=== PATIENT | female | born 1960 | race Caucasian/White ===

== ENCOUNTER 2017-07-12 11:52 | Emergency (ER) | payer OTHER ==
[~2017-07-12] VITALS: Ht 167.6 cm; Wt 104.3 kg
--- OUTSIDE RECORDS SUMMARY | ~2017-07-12 | XMS | Clinical Summary ---
Demographics + + + | Address | [address] | | | [place] [address] | + + + | Home Phone | | + + + | Preferred Language | Unknown | + + + | Marital Status | Unknown | + + + | Adventism Affiliation | Unknown | + + + | Race | Unknown | + + + | Ethnic Group | Unknown | + + + Author + + + | Author | [facility] | | | [facility] [place] | + + + | Organization | [facility] | | | [facility] [place] | + + + | Address | Unknown | + + + | Phone | Unavailable | + + + Care Team Providers + +------+ + | Care Microbiology Lab Technician Name | Role | Phone | + +------+ + PP | Unavailable | + +------+ + Allergies Not on File Current Medications Not on file Active Problems Not on file Social History + +-------+ +--------+------+ | Tobacco Use | Types | Packs/Day | Years | Date | | | | | Used | | + +-------+ +--------+------+ | Never Assessed | | | | | + +-------+ +--------+------+ + + + | Sex Assigned at | Date Recorded | | | | + + + | Not on file | | + + + Plan of Treatment + + + + + | Health Maintenance | Due Date | Last Done | Comments | + + + + + | Hepatitis C | | | | | Screening | 0 | | | + + + + + | Vaccine: | | | | | Dtap/Tdap/Td (1 - | 9 | | | | Tdap) | | | | + + + + + | CERVICAL CANCER | | | | | SCREENING (PAP EVERY | 1 | | | | 3 YEARS 21-64 ) | | | | + + + + + | BREAST CANCER | | | | | SCREENING (MAMM Q2 | 0 | | | | YEARS 50-74) | | | | + + + + + | COLON CANCER | | | | | SCREENING | 0 | | | | (COLONOSCOPY EVERY | | | | | 10 YEARS 50-75) | | | | + + + + + | Vaccine: Influenza | | | | | (Season Ended) | 8 | | | + + + + + Results Not on filefrom Last 3 Months"
--- OUTSIDE RECORDS SUMMARY | ~2017-07-12 | XMS | Clinical Summary ---
Demographics + + + | Address | [address] | | | [place] [address] | + + + | Home Phone | | + + + | Preferred Language | Unknown | + + + | Marital Status | Unknown | + + + | Protestant Affiliation | Unknown | + + + | Race | Unknown | + + + | Ethnic Group | Unknown | + + + Author + + + | Author | [facility] | | | [facility] [place] | + + + | Organization | [facility] | | | [facility] [place] | + + + | Address | Unknown | + + + | Phone | Unavailable | + + + Care Team Providers + +------+ + | Care Java Architect Name | Role | Phone | + [...]
[~2017-07-12 11:52] MED LIST: ALPRAZOLAM0.5 MG PO; ASPIRIN325 MG PO; AZITHROMYCIN250 MG PO; CYMBALTA60 MG PO; GABAPENTIN400 MG PO; LEVOTHYROXINE175 MCG PO; LITHIUM CARBON300 M1 PO; NAPROSYN500 MG PO; TESSALON PERLE100 MG PO; TRAZODONE HCL100 MG PO; WELLBUTRIN SR200 MG PO; XANAX0.5 MG PO
[2017-07-12] MEDS ORDERED: METHYLPREDNISOLO4 M1 PO (12:27)
[2017-07-12] MEDS ORDERED: ZITHROMAX250 MG PO (12:27)
[2017-07-12] MEDS ORDERED: VENTOLIN HFA18 GM INH (12:27)
--- NOTE | 2017-07-13 06:37 | EKG ---
[facility] [address] [place] [address] Signed Normal sinus rhythm Incomplete right bundle branch block Nonspecific ST abnormality Prolonged QT Abnormal ECG No previous ECGs available Confirmed by TJ SCHWARTZ MD ([id number]) on 07/13/2017 6:37:10 AM Electronically Signed By: TJ SCHWARTZ MD 07/13/17 0637 PATIENT NAME: JOY HOOK SAVANNAH Electrocardiogram DATE OF : 60 PHYSICIAN: TJ SCHWARTZ MD REPORT #: [id number] REPORT IS CONFIDENTIAL AND NOT TO BE RELEASED WITHOUT AUTHORIZATION
== END 2017-07-12 12:35 | disposition home or self-care (01) ==
LOC: ED 11:52
DX: J40 Bronchitis, not specified as acute or chronic (principal); Z87.891 Personal history of nicotine dependence; Z88.5 Allergy status to narcotic agent; Z79.82 Long term (current) use of aspirin; Z79.899 Other long term (current) 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
CPT/HCPCS: 93005; 93010; 99283

== ENCOUNTER 2023-10-19 09:50 | Day surgery (SDC) | payer MEDICARE, OTHER ==
[2023-10-17 08:49] VITALS: BP 150/87
[~2023-10-19] VITALS: Ht 167.6 cm; Wt 119.0 kg
[~2023-10-19 09:50] MED LIST changes: +IBLOOD GLUCOSE TEST STRIP 1 EA TEST VI PRN; +LACTATED RINGER'S 1,000 ML IV SCH; +LIDOCAINE HCL 1% 5 ML SDV INJ ONE; +METHYLFOLATE1 EACH PO; +METHYLPREDNISOLO4 M1 PO; +PROPRANOLOL HCL20 MG PO; +ROSUVASTATIN CA10 MG PO; +VENTOLIN HFA18 GM INH; +VITAMIN D250 MC1 PO; +VITAMIN D250 MCG PO; +WOMEN'S DAILY1 EACH PO; +ZITHROMAX250 MG PO; +ZOLPIDEM TARTRA10 MG PO
[2023-10-19 10:05] VITALS: BP 145/81
[2023-10-19] MEDS ORDERED: DEXAMETHASONE SOD PHOS 4 MG/ML VIAL ONE (10:18)
[2023-10-19] MEDS ORDERED: ondansetron HCL 4 MG/2 ML VIAL ONE (10:18)
[2023-10-19] MEDS ORDERED: propofoL 200 MG/20 ML VIAL ONE ×2 (10:18→10:40)
[2023-10-19] MEDS ORDERED: LIDOCAINE HCL 2% 5 ML SDV ONE (10:18)
--- NOTE | 2023-10-19 10:59 | NUR ---
10/19/23 Ro9 Rita Rosales HOB IS ELEVATED. PATIENT ASKS "CAN I GO BACK TO SLEEP?" PATIENT RESTS QUIETLY WITH RR EVEN AND UNLABORED WHEN UNSTIMULATED. SHE WAKES EASILY TO MY VOICE.
[2023-10-19 11:25] VITALS: BP 137/66
--- NOTE | 2023-10-19 13:58 | OR ---
[facility] [address], [place] [address] Signed DATE OF OPERATION: 10/19/2023 SURGEON: Ricardo Neal MD PREOPERATIVE DIAGNOSES: 1. Positive Cologuard test. 2. Generalized abdominal pain, bloating, and diarrhea associated with irritable bowel syndrome. POSTOPERATIVE DIAGNOSIS: Minimal internal hemorrhoids. PROCEDURE: Colonoscopy without biopsy. ESTIMATED BLOOD LOSS: None. INDICATIONS: Joy is a 63-year-old female, asked to see me for her initial colonoscopy. I actually saw her in 2011 for her chronic generalized abdominal pain, bloating and diarrhea associated with her irritable bowel syndrome. She never came for the colonoscopy because of her severe agoraphobia. She did get some stool samples recently and the Cologuard test came back positive. This was in August of 2022. She has been talking with her friends and finally got up enough courage and took medicine in order that she could make it in the office for the consult. She tells me there is no family history of colon cancer or polyps. In the office, I gave her a pamphlet on colonoscopy. We had reviewed the nature of the test. There is risk including, but not limited to gas bloating, crampy abdominal pain, bleeding, perforation requiring surgery, and missed diagnosis. We also reviewed the written instructions for the bowel prep line by line. She did call me last night and asked if she could take her promethazine which is fine. Because of her severe bipolar disorder associated with agoraphobia and her panic attacks, we did ask for monitored anesthesia care with propofol infusion. That proved to be a hassan decision as she needed quite a bit of propofol. She had expressed understanding and wished to proceed. DESCRIPTION OF PROCEDURE: Joy was taken into our endoscopy suite and placed in the left lateral decubitus position. She was given monitored anesthesia care with propofol infusion per our nurse first crusher. A digital rectal exam was performed. This was unremarkable. There were Electronically Signed By: RICARDO NEAL MD 10/19/23 1358 PATIENT NAME: JOY HOOK OPERATIVE REPORT DATE OF : 60 REPORT #: [id number] PHYSICIAN: RICARDO NEAL MD PCP: MATTHEW POST MD REPORT IS CONFIDENTIAL AND NOT TO BE RELEASED WITHOUT AUTHORIZATION [facility] [address], [place] [address] Signed no external hemorrhoids. She had good sphincter tone. There were no masses. The adult colonoscope was introduced and advanced all around into the cecum under direct visualization of the camera without difficulty. Her prep was good. There were few areas of liquid stool that was easily irrigated and suctioned out. We could easily see the appendiceal orifice and the ileocecal valve. The scope was then slowly withdrawn. We took several pictures throughout for photodocumentation. She had no pathology throughout the entire colon or rectum. The scope was then retroflexed and she has just very minimal internal hemorrhoid tissue. After this, the gas was suctioned out and the colonoscope removed. Joy tolerated the procedure quite well. RECOMMENDATIONS: Joy can follow up in 10 years for repeat screening colonoscopy. Ricardo Neal MD ALB/MODL /[id number] cc: MD Ricardo Senior MD Copies: MATTHEW POST DMD, ANDREW L MD ~ Electronically Signed By: RICARDO NEAL MD 10/19/23 1358 PATIENT NAME: JOY HOOK OPERATIVE REPORT DATE OF : 60 REPORT #: [id number] PHYSICIAN: RICARDO NEAL MD PCP: MATTHEW POST MD REPORT IS CONFIDENTIAL AND NOT TO BE RELEASED WITHOUT AUTHORIZATION
== END 2023-10-19 11:34 | disposition home or self-care (01) ==
LOC: DS 09:50
PROVIDERS: ATTEND Colon & Rectal Surgery
PROC: 0DJD8ZZ Inspection of Lower Intestinal Tract, Via Natural or Artificial Opening Endoscopic (ICD-10-PCS; principal; 2023-10-19 10:30)
DX: Z12.11 Encounter for screening for malignant neoplasm of colon (principal); K64.8 Other hemorrhoids; K58.0 Irritable bowel syndrome with diarrhea; F40.00 Agoraphobia, unspecified; F31.9 Bipolar disorder, unspecified; E78.5 Hyperlipidemia, unspecified; E03.9 Hypothyroidism, unspecified; E66.9 Obesity, unspecified; Z68.41 Body mass index [BMI] 40.0-44.9, adult; Z87.891 Personal history of nicotine dependence; Z88.5 Allergy status to narcotic agent; Z79.890 Hormone replacement therapy; Z79.899 Other long term (current) 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
CPT/HCPCS: J1100; J2001; J2405; J2704; J7121

== ENCOUNTER 2023-11-16 23:36 | Emergency (ER) | payer MEDICARE, OTHER ==
[~2023-11-16] VITALS: Ht 167.6 cm; Wt 119.5 kg
[~2023-11-16 23:36] MED LIST changes: -IBLOOD GLUCOSE TEST STRIP 1 EA TEST VI PRN; -LACTATED RINGER'S 1,000 ML IV SCH; -LIDOCAINE HCL 1% 5 ML SDV INJ ONE
--- OUTSIDE RECORDS SUMMARY | 2023-11-16 23:37 | XMS ---
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 Aamir has no Care Guidelines for this patient. Xavier VISIT COUNT (12 MO.) 1 TARAN Potter TOTAL 1 NOTE: Visits indicate total known visits. ED/C VISIT TRACKING (12 MO.) 11/16/2023 23:37 [facility] [place] TYPE: Emergency COMPLAINT: - PROBLEM SWALLOWING INPATIENT VISIT TRACKING (12 MO.) No inpatient visits to display in this time frame [email or web address]
[2023-11-17 00:10] VITALS: BP 159/67
== END 2023-11-17 00:10 | disposition home or self-care (01) ==
LOC: ED 23:36
DX: R09.A2 Foreign body sensation, throat (principal); F31.9 Bipolar disorder, unspecified; Z87.891 Personal history of nicotine dependence; Z88.5 Allergy status to narcotic agent; Z79.899 Other long term (current) 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; Z79.890 Hormone replacement therapy
CPT/HCPCS: 99283

== ENCOUNTER 2024-01-11 18:48 | Emergency (ER) | payer MEDICARE, OTHER ==
[~2024-01-11] VITALS: Ht 167.6 cm; Wt 118.3 kg
[2024-01-11] MEDS ORDERED: ASPIRIN 81 MG CHEW PO ONE (19:00)
[2024-01-11] MEDS ORDERED: NITROGLYCERIN 0.4 MG SUBL SL PRN (19:00)
[2024-01-11] MEDS ORDERED: METAFOLBIC TAB1 EACH PO (19:11)
[2024-01-11 19:27] LABS: BASOPHILS 1.1 % (0-2); EOSINOPHILS 5.6 % (0-6); HEMATOCRIT 41.7 % (35.0-50.0); HEMOGLOBIN 14.1 g/dL (12.0-18.0); LYMPHOCYTES 30.9 % (24-44); MCH 30.7 (27-36); MCHC 33.7 g/dl (30-36); MCV 90.9 fl (81-99); MONOCYTES 8.1 % (0-12); NEUTROPHILS 54.3 % (39-80); PLATELET COUNT 205 K/uL (140-440); RBC 4.59 M/ul (4.3-5.7); RDW 13.5 (10.5-15.0)
[2024-01-11 19:27] LABS: ALBUMIN 4.1 g/dL (3.4-5.0); ALBUMIN/GLOBULIN RATIO 1.37 (1.1-2.4); BILIRUBIN, TOTAL 0.5 ng/dL (0.2-1.0); BUN/CREATININE RATIO 10.48 (6.0-28.6); CALCIUM 9.5 mg/dL (8.5-10.1); CREATININE, SERUM 1.24 mg/dL (0.55-1.02); MAGNESIUM 1.7 mg/dL (1.8-2.4); PROTEIN, TOTAL 7.1 g/dL (6.4-8.2)
[2024-01-11] MEDS ORDERED: ondansetron HCL 4 MG/2 ML VIAL IV ONE (20:00)
[2024-01-11] MEDS ORDERED: PSEUDOEPHEDRINE HCL 30 MG TAB PO ONE (20:00)
[2024-01-11] MEDS ORDERED: KETOROLAC TROMETHAMINE 30 MG/ML VIAL IV ONE (20:00)
[2024-01-11 20:57] VITALS: BP 111/65
[2024-01-11] MEDS ORDERED: MECLIZINE HCL25 M1 PO (21:14)
[2024-01-11] MEDS ORDERED: ONDANSETRON ODT8 MG PO (21:15)
[2024-01-11] MEDS ORDERED: MECLIZINE HCL 25 MG TAB PO ONE (21:30)
[2024-01-11] MEDS ORDERED: ONDANSETRON 4 MG HOME.PACK SL ONE (21:30)
--- NOTE | 2024-01-12 23:12 | EKG ---
[facility] [address] [place] [address] Signed Normal sinus rhythm RSR' or QR pattern in V1 suggests right ventricular conduction delay Borderline ECG No previous ECGs available Confirmed by Tram Bledsoe MD () on 01/12/2024 11:12:13 PM Electronically Signed By: TRAM BLEDSOE MD 01/12/24 2312 PATIENT NAME: JOY HOOK Electrocardiogram DATE OF : 60 PHYSICIAN: TRAM BLEDSOE MD REPORT #: [id number] REPORT IS CONFIDENTIAL AND NOT TO BE RELEASED WITHOUT AUTHORIZATION
== END 2024-01-11 21:28 | disposition home or self-care (01) ==
LOC: ED 18:48
PROVIDERS: Emergency Medicine
DX: R07.89 Other chest pain (principal); H81.10 Benign paroxysmal vertigo, unspecified ear; N18.31 Chronic kidney disease, stage 3a; E78.5 Hyperlipidemia, unspecified; F31.9 Bipolar disorder, unspecified; Z87.891 Personal history of nicotine dependence; Z88.5 Allergy status to narcotic agent
CPT/HCPCS: 36415; 70450; 70496; 70498; 71045; 80053; 83735; 84484; 85025; 93005; 93010; 99285-25; A9270; J1885; J2405; Q9967

== ENCOUNTER 2024-05-08 23:13 | Emergency (ER) | payer MEDICARE, OTHER ==
[~2024-05-08] VITALS: Ht 167.6 cm; Wt 108.9 kg
[~2024-05-08 23:13] MED LIST changes: +MECLIZINE HCL25 M1 PO; +METAFOLBIC TAB1 EACH PO; +ONDANSETRON ODT8 MG PO
[2024-05-08] MEDS ORDERED: CIPROFLOXACIN250 MG (23:35)
[2024-05-08] MEDS ORDERED: OLANZAPINE5 MG (23:35)
[2024-05-08] MEDS ORDERED: LIDOCAINE HCL 4% 50 ML BTL TOP ONE (23:45)
[2024-05-08] MEDS ORDERED: PHENAZOPYRIDINE HCL 100 MG TAB PO ONE (23:45)
[2024-05-09 00:16] VITALS: BP 145/75
== END 2024-05-09 00:15 | disposition home or self-care (01) ==
LOC: ED 23:13
DX: R09.A2 Foreign body sensation, throat (principal); N18.31 Chronic kidney disease, stage 3a; E78.5 Hyperlipidemia, unspecified; Z87.891 Personal history of nicotine dependence; Z88.5 Allergy status to narcotic agent; Z79.890 Hormone replacement therapy; Z79.899 Other long term (current) 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
CPT/HCPCS: 70360; 71045; 99283-25

== ENCOUNTER 2024-05-15 09:10 | Emergency (ER) | payer MEDICARE, OTHER ==
[~2024-05-15] VITALS: Ht 167.6 cm; Wt 117.9 kg
[~2024-05-15 09:10] MED LIST changes: +CIPROFLOXACIN250 MG; +OLANZAPINE5 MG
--- OUTSIDE RECORDS SUMMARY | 2024-05-15 09:16 | XMS ---
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 Aamir has no Care Guidelines for this patient. [facility] MO[facility] NOTE: Visits indicate total known visits. 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 - Personal history of nicotine dependence 01/11/2024 18:49 [facility] [place] TYPE: Emergency COMPLAINT: - CHEST PAIN DIAGNOSES: - Allergy status to narcotic agent - Benign paroxysmal vertigo, unspecified ear - Bipolar disorder, unspecified - Chest pain, unspecified - Chronic kidney disease, stage 3a - Hyperlipidemia, unspecified - Other chest pain - Personal history of nicotine dependence 11/16/2023 23:37 [facility] [place] TYPE: Emergency COMPLAINT: - PROBLEM SWALLOWING DIAGNOSES: - Allergy status to narcotic agent - Bipolar disorder, unspecified - Foreign body sensation, throat - Hormone replacement therapy - 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
[2024-05-15] MEDS ORDERED: LEVOTHYROXINE150 MCG PO (09:24)
[2024-05-15] MEDS ORDERED: ALPRAZOLAM ER0.5 MG PO (09:26)
[2024-05-15] MEDS ORDERED: PROMETHAZINE HC25 M1 PO (09:26)
[2024-05-15 09:29] LABS: EOSINOPHILS 4.7 % (0-6); HEMATOCRIT 45.6 % (35.0-50.0); HEMOGLOBIN 15.3 g/dL (12.0-18.0); LYMPHOCYTES 40.9 % (24-44); MCH 30.3 (27-36); MCHC 33.6 g/dl (30-36); MCV 90.2 fl (81-99); MONOCYTES 9.5 % (0-12); NEUTROPHILS 43.9 % (39-80); PLATELET COUNT 223 K/uL (140-440); RBC 5.05 M/ul (4.3-5.7); RDW 13.5 (10.5-15.0)
[2024-05-15] MEDS ORDERED: ondansetron HCL 4 MG/2 ML VIAL IV ONE (09:30)
[2024-05-15 09:45] LABS: ALBUMIN 4.2 g/dL (3.4-5.0); ALBUMIN/GLOBULIN RATIO 1.27 (1.1-2.4); BILIRUBIN, TOTAL 0.6 ng/dL (0.2-1.0); BUN/CREATININE RATIO 16.09 (6.0-28.6); CALCIUM 9.9 mg/dL (8.5-10.1); CREATININE, SERUM 0.87 mg/dL (0.55-1.02); MAGNESIUM 1.9 mg/dL (1.8-2.4); PROTEIN, TOTAL 7.5 g/dL (6.4-8.2)
[2024-05-15 10:13] LABS: BILIRUBIN, URINE NEGATIVE (negative); BLOOD/HGB, URINE NEGATIVE (Negative); KETONE, URINE NEGATIVE (Negative); LEUK ESTERASE, URINE SMALL (negative); NITRITE, URINE NEGATIVE (negative); PH, URINE 5.5 (5-7)
[2024-05-15 10:24] LABS: EPITHELIAL CELLS, URINE SQUAMOUS 2+ /lpf (0-1+); RED BLOOD CELLS, URINE 0-1 /hpf (0-5)
[2024-05-15 10:25] LABS: BACTERIA, URINE RARE /hpf (negative); CASTS, URINE NONE SEEN \\lpf; COLLECTION TYPE, URINE CLEAN CATCH; CRYSTALS, URINE NONE SEEN (0-1+); REFLEX CULTURE, URINE No (No)
[2024-05-15 11:00] VITALS: BP 158/85
== END 2024-05-15 11:00 | disposition home or self-care (01) ==
LOC: ED 09:10
PROVIDERS: Emergency Medicine
DX: R10.31 Right lower quadrant pain (principal); N18.31 Chronic kidney disease, stage 3a; E78.5 Hyperlipidemia, unspecified; F31.9 Bipolar disorder, unspecified; Z87.891 Personal history of nicotine dependence; Z88.5 Allergy status to narcotic agent; Z79.899 Other long term (current) 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; Z79.890 Hormone replacement therapy
CPT/HCPCS: 36415; 74177; 80053; 81001; 83690; 83735; 85025; 99284-25; J2405; Q9967

== ENCOUNTER 2024-05-28 06:50 | Emergency (ER) | payer MEDICARE, OTHER ==
[~2024-05-28] VITALS: Ht 167.6 cm; Wt 119.7 kg
[~2024-05-28 06:50] MED LIST changes: +ALPRAZOLAM ER0.5 MG PO; +LEVOTHYROXINE150 MCG PO; +PROMETHAZINE HC25 M1 PO
--- OUTSIDE RECORDS SUMMARY | 2024-05-28 06:57 | XMS ---
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 Aamir has no Care Guidelines for this patient. [facility] NOTE: Visits indicate total known visits. ED/C VISIT TRACKING (12 MO.) 05/28/2024 06:50 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 [place] TYPE: Emergency COMPLAINT: - FOREIGN OBJECT DIAGNOSES: - Allergy status to narcotic agent - Chronic kidney disease, stage 3a - Foreign body sensation, throat - Hormone replacement therapy - Hyperlipidemia, unspecified - Other group home (current) 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 - Personal history of nicotine dependence 01/11/2024 18:49 [facility] [place] TYPE: Emergency COMPLAINT: - CHEST PAIN [...] throat - Hormone replacement therapy - Other exterminator (current) 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 - Personal history of nicotine dependence INPATIENT VISIT TRACKING (12 MO.) No inpatient visits to display in this time frame [email or web address]
[2024-05-28] MEDS ORDERED: PROCHLORPERAZINE EDISYLATE 10 MG/2 ML VIAL IV ONE (07:15)
[2024-05-28] MEDS ORDERED: PANTOPRAZOLE SODIUM 40 MG/10 ML VIAL IV ONE (07:15)
[2024-05-28] MEDS ORDERED: SODIUM CHLORIDE 0.9% 1,000 ML IV ONE (07:15)
[2024-05-28] MEDS ORDERED: LIDOCAINE & ANTACID 35 ML BTL PO ONE (07:30)
[2024-05-28 07:32] LABS: BASOPHILS 0.7 % (0-2); EOSINOPHILS 4.3 % (0-6); HEMOGLOBIN 14.1 g/dL (12.0-18.0); LYMPHOCYTES 23.3 % (24-44); MCH 30.6 (27-36); MCHC 34.5 g/dl (30-36); MCV 88.8 fl (81-99); MONOCYTES 10.2 % (0-12); NEUTROPHILS 61.5 % (39-80); PLATELET COUNT 233 K/uL (140-440); RBC 4.62 M/ul (4.3-5.7); RDW 13.5 (10.5-15.0)
[2024-05-28 07:47] LABS: ALBUMIN 3.9 g/dL (3.4-5.0); ALBUMIN/GLOBULIN RATIO 1.18 (1.1-2.4); ANION GAP 14.2 (7-21); BILIRUBIN, TOTAL 0.4 mg/dL (0.2-1.0); BUN/CREATININE RATIO 24.13 (6.0-28.6); CALCIUM 9.8 mg/dL (8.5-10.1); CREATININE, SERUM 0.87 mg/dL (0.55-1.02); MAGNESIUM 1.9 mg/dL (1.8-2.4); POTASSIUM 4.2 mmol/L (3.5-5.1); PROTEIN, TOTAL 7.2 g/dL (6.4-8.2)
[2024-05-28 09:10] LABS: BILIRUBIN, URINE NEGATIVE (negative); BLOOD/HGB, URINE NEGATIVE (Negative); KETONE, URINE NEGATIVE (Negative); LEUK ESTERASE, URINE SMALL (negative); NITRITE, URINE NEGATIVE (negative)
[2024-05-28 09:26] LABS: BACTERIA, URINE RARE /hpf (negative); CASTS, URINE NONE SEEN \\lpf; COLLECTION TYPE, URINE CLEAN CATCH; CRYSTALS, URINE NONE SEEN (0-1+); EPITHELIAL CELLS, URINE SQUAMOUS 2+ /lpf (0-1+); RED BLOOD CELLS, URINE 0-1 /hpf (0-5); REFLEX CULTURE, URINE No (No)
[2024-05-28] MEDS ORDERED: OMEPRAZOLE20 MG PO (09:42)
[2024-05-28] MEDS ORDERED: ONDANSETRON ODT8 MG PO (09:43)
[2024-05-28 09:53] VITALS: BP 150/74
== END 2024-05-28 09:55 | disposition home or self-care (01) ==
LOC: ED 06:50
PROVIDERS: Emergency Medicine
DX: E53.9 Vitamin B deficiency, unspecified (principal); R10.13 Epigastric pain; I12.9 Hypertensive chronic kidney disease with stage 1 through stage 4 chronic kidney disease, or unspecified chronic kidney disease; N18.31 Chronic kidney disease, stage 3a; F31.9 Bipolar disorder, unspecified; E78.5 Hyperlipidemia, unspecified; Z87.891 Personal history of nicotine dependence; Z88.5 Allergy status to narcotic agent; Z79.890 Hormone replacement therapy; Z79.899 Other long term (current) 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
CPT/HCPCS: 36415; 80053; 81001; 83690; 83735; 83880; 85025; 96374; 96375; 99284-25; J0780; J2470; J7030

== ENCOUNTER 2024-07-30 17:58 | Emergency (ER) | payer MEDICARE, OTHER ==
[~2024-07-30] VITALS: Ht 167.6 cm; Wt 113.0 kg
[~2024-07-30 17:58] MED LIST changes: +OMEPRAZOLE20 MG PO
[2024-07-30] MEDS ORDERED: DOXYCYCLINE MO100 MG PO (18:13)
[2024-07-30] MEDS ORDERED: BENZONATATE100 MG PO (18:14)
[2024-07-30] MEDS ORDERED: PREDNISONE20 MG PO (18:14)
[2024-07-30] MEDS ORDERED: PANTOPRAZOLE SO40 MG PO (18:14)
[2024-07-30] MEDS ORDERED: TRIAMCINOLONE A15 G1 TOP (18:15)
[2024-07-30] MEDS ORDERED: OXCARBAZEPINE300 MG PO (18:15)
[2024-07-30] MEDS ORDERED: FLUTICASONE PRO16 GM (18:15)
[2024-07-30] MEDS ORDERED: VENTOLIN HFA18 GM (18:15)
[2024-07-30] MEDS ORDERED: XANAX XR0.5 MG PO (18:17)
[2024-07-30 18:34] LABS: BASOPHILS 0.2 % (0-2); EOSINOPHILS 0.2 % (0-6); HEMATOCRIT 39.7 % (35.0-50.0); HEMOGLOBIN 13.9 g/dL (12.0-18.0); LYMPHOCYTES 19.7 % (24-44); MCH 30.6 (27-36); MCV 87.4 fl (81-99); MONOCYTES 5.6 % (0-12); NEUTROPHILS 74.3 % (39-80); PLATELET COUNT 218 K/uL (140-440); RBC 4.54 M/ul (4.3-5.7); RDW 13.8 (10.5-15.0)
[2024-07-30 18:49] LABS: ALBUMIN 4.4 g/dL (3.4-5.0); ALBUMIN/GLOBULIN RATIO 1.52 (1.1-2.4); BILIRUBIN, TOTAL 0.5 mg/dL (0.2-1.0); BUN/CREATININE RATIO 13.91 (6.0-28.6); CALCIUM 9.8 mg/dL (8.5-10.1); CREATININE, SERUM 1.15 mg/dL (0.55-1.02); PROTEIN, TOTAL 7.3 g/dL (6.4-8.2)
[2024-07-30] MEDS ORDERED: ALBUTEROL/IPRATROPIUM 3 ML NEB INH ONE (19:00)
[2024-07-30] MEDS ORDERED: LACTATED RINGER'S 1,000 ML IV ONE (19:15)
[2024-07-30 20:00] VITALS: BP 125/55
== END 2024-07-30 20:17 | disposition home or self-care (01) ==
LOC: ED 17:58
PROVIDERS: Emergency Medicine
DX: J06.9 Acute upper respiratory infection, unspecified (principal); E78.5 Hyperlipidemia, unspecified; Z79.899 Other long term (current) 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; Z79.51 Long term (current) use of inhaled steroids; Z79.52 Long term (current) use of systemic steroids; Z88.5 Allergy status to narcotic agent; Z87.891 Personal history of nicotine dependence
CPT/HCPCS: 36415; 71045; 80053; 83880; 84484; 85025; 85379; 94640; 99285; J7121

== ENCOUNTER 2024-08-20 14:08 | Emergency (ER) | payer MEDICARE, OTHER | END 2024-08-20 17:04 | disposition home or self-care (01) | LOC: ED 14:08 | DX: R51.9 Headache, unspecified (principal); Z88.5 Allergy status to narcotic agent; Z79.899 Other long term (current) 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; Z79.890 Hormone replacement therapy ==

== ENCOUNTER 2024-10-14 17:57 | Emergency (ER) | payer MEDICARE, OTHER ==
[~2024-10-14] VITALS: Ht 167.6 cm; Wt 102.0 kg
[~2024-10-14 17:57] MED LIST changes: +BENZONATATE100 MG PO; +DOXYCYCLINE MO100 MG PO; +FLUTICASONE PRO16 GM; +OXCARBAZEPINE300 MG PO; +PANTOPRAZOLE SO40 MG PO; +PREDNISONE20 MG PO; +TRIAMCINOLONE A15 G1 TOP; +VENTOLIN HFA18 GM; +XANAX XR0.5 MG PO
--- OUTSIDE RECORDS SUMMARY | 2024-10-14 18:04 | XMS ---
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 Xavier VISIT COUNT (12 MO.) Emmanuel Potter TOTAL 8 NOTE: Visits indicate total known visits. ED/UCC VISIT TRACKING (12 MO.) 10/14/2024 17:57 [facility] Morgan [place] TYPE: Emergency COMPLAINT: - ABDOMINAL PAIN 08/20/2024 14:08 [facility] [place] TYPE: Emergency COMPLAINT: - HEADACHE DIAGNOSES: - Allergy status to narcotic agent - Headache, unspecified - Hormone replacement therapy - Other lobsterman (current) 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 07/30/2024 17:58 [facility] [place] TYPE: Emergency COMPLAINT: - TROUBLE BREATHING DIAGNOSES: - Acute upper respiratory infection, unspecified - Allergy status to narcotic agent - Hyperlipidemia, unspecified - senior care (current) use of inhaled steroids - senior care (current) use of systemic steroids - Other lobsterman (current) 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 - Personal history of nicotine dependence - Shortness of breath 05/28/2024 06:50 [facility] [place] TYPE: Emergency COMPLAINT: - MUSCLE SPASMS DIAGNOSES: - Allergy status to narcotic agent - Bipolar disorder, unspecified - Chronic kidney disease, stage 3a - Effusion, left ankle - Epigastric pain - Hormone replacement therapy - Hyperlipidemia, unspecified - Hypertensive chronic kidney disease with stage 1 through stage 4 chronic kidney disease, or unspecified chronic kidney disease - Other fci (current) 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 - Personal history of nicotine dependence - Vitamin B deficiency, unspecified 05/15/2024 09:10 [facility] [place] TYPE: Emergency COMPLAINT: - ABDOMINAL PAIN DIAGNOSES: - Allergy status to narcotic agent - Bipolar disorder, unspecified - Chronic kidney disease, stage 3a - Hormone replacement therapy - Hyperlipidemia, unspecified - Other 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 (current) 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 - Personal history of nicotine dependence - Right lower quadrant pain 05/08/2024 23:13 [facility] [place] TYPE: Emergency COMPLAINT: - FOREIGN OBJECT DIAGNOSES: - Allergy status to narcotic agent - Chronic kidney disease, stage 3a - Foreign body sensation, throat - Hormone replacement therapy - Hyperlipidemia, unspecified - Other fci (current) 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 - Personal history of nicotine dependence 01/11/2024 18:49 [facility] [place] [facility] [place] TYPE: Emergency COMPLAINT: - CHEST PAIN DIAGNOSES: - Allergy status to narcotic agent - Benign paroxysmal vertigo, unspecified ear - Bipolar disorder, unspecified - Chest pain, unspecified - Chronic kidney disease, stage 3a - Hyperlipidemia, unspecified - Other chest pain - Personal history of nicotine dependence 11/16/2023 23:37 [facility] [place] [facility] [place] TYPE: Emergency COMPLAINT: - PROBLEM SWALLOWING DIAGNOSES: - Allergy status to narcotic agent - Bipolar disorder, unspecified - Foreign body sensation, throat - Hormone replacement therapy - Other fci (current) 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 - Personal history of nicotine dependence INPATIENT VISIT TRACKING (12 MO.) No inpatient visits to display in this time frame [email or web address]
[2024-10-14 18:29] LABS: BASOPHILS 1.0 % (0.1-1.2); EOSINOPHILS 3.3 % (0.7-5.8); LYMPHOCYTES 34.2 % (19.3-51.7); MCH 30.0 PG (25.6-32.2); MCHC 33.6 g/dL (32.2-35.5); MCV 89.2 fL (79.4-94.8); MONOCYTES 9.4 % (4.7-12.5); NEUTROPHILS 51.9 % (34.0-71.1); RBC 4.93 M/uL (3.93-5.22)
[2024-10-14] MEDS ORDERED: PRISTIQ ER50 MG PO (18:35)
[2024-10-14] MEDS ORDERED: ZOLPIDEM TARTRAT5 MG PO (18:36)
[2024-10-14] MEDS ORDERED: AMBIEN5 MG PO (18:36)
[2024-10-14 18:44] LABS: ALT (SGPT) 34.0 U/L (14-59); AST (SGOT) 21.0 U/L (15-37); GLOMERULAR FILTRATION RATE,EST 59.0 mL/min (>60); PROTEIN, TOTAL 7.5 g/dL (6.4-8.2); UREA NITROGEN 9.0 mg/dL (7-18)
[2024-10-14 19:55] LABS: BLOOD/HGB, URINE NEGATIVE (Negative); KETONE, URINE TRACE (Negative); LEUK ESTERASE, URINE TRACE (negative); NITRITE, URINE NEGATIVE (negative)
[2024-10-14] MEDS ORDERED: fentaNYL citrate 100 MCG/2 ML VIAL IV ONE (20:00)
[2024-10-14] MEDS ORDERED: METOCLOPRAMIDE HCL 10 MG/2 ML SDV IV ONE (20:00)
[2024-10-14] MEDS ORDERED: LACTATED RINGER'S 1,000 ML IV ONE (20:00)
[2024-10-14 20:19] LABS: BACTERIA, URINE 1+ /hpf (negative); CASTS, URINE NONE SEEN \\lpf; CRYSTALS, URINE NONE SEEN (0-1+); EPITHELIAL CELLS, URINE SQUAMOUS 2+ /lpf (0-1+); REFLEX CULTURE, URINE No (No)
[2024-10-14] MEDS ORDERED: LIDOCAINE & ANTACID 35 ML BTL PO ONE (21:15)
[2024-10-14] MEDS ORDERED: CARAFATE1 GM PO (21:54)
[2024-10-14] MEDS ORDERED: MACROBID 100 M100 MG PO (21:54)
[2024-10-14] MEDS ORDERED: LACTULOSE10 GM/154 PO (21:54)
[2024-10-14] MEDS ORDERED: LACTULOSE 20 GM/30 ML CUP PO ONE (22:00)
[2024-10-14] MEDS ORDERED: ONDANSETRON 4 MG HOME.PACK SL ONE (22:00)
[2024-10-14] MEDS ORDERED: SUCRALFATE 1 GM TAB PO ONE (22:45)
[2024-10-14] MEDS ORDERED: FLUCONAZOLE150 MG PO (22:54)
[2024-10-14 23:12] VITALS: BP 133/78
== END 2024-10-14 23:13 | disposition home or self-care (01) ==
LOC: ED 17:57
PROVIDERS: Emergency Medicine
DX: N39.0 Urinary tract infection, site not specified (principal); K59.00 Constipation, unspecified; K21.9 Gastro-esophageal reflux disease without esophagitis; Z87.891 Personal history of nicotine dependence; Z88.5 Allergy status to narcotic agent; Z79.899 Other long term (current) 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; Z79.890 Hormone replacement therapy
CPT/HCPCS: 36415; 74177; 80053; 81001; 83690; 83735; 85025; 96361; 96375; 99284-25; A9270; J0696; J2405; J2765; J3010; J7121; Q9967